=== PATIENT | male | born 1955 | race Caucasian/White ===

== ENCOUNTER 2017-01-14 16:01 | Observation (INO) | payer OTHER ==
[2017-01-14] MEDS ORDERED: ASPIRIN 81 MG CHEWABLE TAB PO ONE (16:12)
--- NOTE | 2017-01-14 16:14 | CPEKG ---
Heart Rate: 55 RR Interval: 1091 P-R Interval: 164 QRSD Interval: 116 QT Interval: 436 QTC Interval: 417 P [place]: 67 QRS [place]: -14 T Wave [place]: -3 EKG Severity - ABNORMAL ECG - EKG Impression: SINUS RHYTHM EKG Impression: INCOMPLETE RIGHT BUNDLE BRANCH BLOCK Electronically Signed By: Shabbir Moy 16-Jan-2017 09:00:18
[2017-01-14 16:27] LABS: % IMMATURE GRANULYOCYTES 0.3 % (0.0-1.1); ABSOLUTE IMMATURE GRANULOCYTES 0.03 10^3/uL (0.00-0.10); ADD DIFF? NO; ADD MORPH? NO; ADD SCAN? NO; ATYPICAL LYMPHOCYTE FLAG 0 (0-99); FRAGMENT RBC FLAG 0 (0-99); HEMATOCRIT 47.2 % (40.0-51.0); HEMOGLOBIN 16.4 g/dL (13.7-17.5); LEFT SHIFT FLG 0 (0-99); LIPEMIA HEMOLYSIS FLAG 90 (0-99); MEAN CELL HEMOGLOBIN 31.5 pg (27.9-34.1); MEAN CELL HEMOGLOBIN CONCENTR. 34.7 g/dL (32.4-36.7); MEAN CELL VOLUME 90.8 fL (81.5-99.8); MEAN PLATELET VOLUME 10.5 fL (8.7-11.7); PLATELET CLUMPS FLAG 0 (0-99); PLATELET COUNT 194 10^3/uL (150-400); RED CELL DISTRIBUTION WIDTH 12.4 % (11.5-15.2)
[2017-01-14 16:36] LABS: INR 1.06 (0.83-1.16); PROTIME(PATIENT) 13.5 SEC (12.0-15.0)
[2017-01-14 16:37] LABS: APTT 28.4 SEC (23.0-38.0)
[2017-01-14 16:44] LABS: ANION GAP 12 mEq/L (8-16); CALCIUM 9.6 mg/dL (8.5-10.4); CARBON DIOXIDE 27 mEq/l (22-31); CHLORIDE 101 mEq/L (97-110); CREATININE 0.9 mg/dL (0.7-1.3); GLOMERULAR FILTRATION RATE > 60; GLUCOSE 88 mg/dL (70-100); POTASSIUM 4.2 mEq/L (3.5-5.2); SODIUM 140 mEq/L (134-144)
[2017-01-14 16:53] LABS: TROPONIN I < 0.012 ng/mL (0.000-0.034)
--- NOTE | 2017-01-14 17:00 | EDPHY ---
H & P Time Seen by Provider: 01/14/17 16:12 HPI/ROS: HPI Chest pain, right arm discomfort. 61-year-old male from the office of his primary care physician, Dr. Macdonald. Patient reports that he had a 8 minutes episode of right sided substernal and pectoral chest pain described as a deep ache and squeezing sensation this morning with associated numbness and tingling in his right upper extremity and shoulder. He had a similar episode to this about 2 weeks ago which was not a severe and lasted only 45 seconds to a minute. ROS: Constitutional: No fever, no chills. No weakness. Eyes: No discharge. No changes in vision. ENT: No sore throat. No nasal congestion or rhinorrhea. Respiratory: No cough. No shortness of breath. Cardiac: As above, no palpitations. Gastrointestinal: No abdominal pain, no vomiting, no diarrhea. Genitourinary: No hematuria. No dysuria or increased frequency with urination. Musculoskeletal: No back pain. No neck pain. No myalgias or arthralgias. Skin: No rashes. Neurological: No headache. No focal weakness or altered sensation. Past medical history: Hypertension, hyperlipidemia, former smoker, quit 6 months ago, 2 diabetic. Social history: As above. . is on her way. Physical Exam: General Appearance: Alert, no distress. This patient is responding to questions appropriately and in full sentences. This patient appears well- hydrated and well-nourished. Eyes: Pupils equal and round no pallor or injection. No lid edema, erythema or injection. Respiratory: There are no retractions, lungs are clear to auscultation with good air movement bilaterally. Cardiovascular: Regular rate and rhythm. No murmur. Gastrointestinal: Abdomen is soft and nontender, no masses, bowel sounds normal. No focal tenderness at McBurney's point. No Thayer sign. Neurological: Motor sensory function is grossly intact. Cranial nerves are normal. Gait is normal. Skin: Warm and dry, no rashes. Musculoskeletal: Neck is supple and nontender. Extremities are symmetrical. All joints range without pain or impingement. Psychiatric: No agitation. No depression. Database: EKG: EKG time is 4:13 p.m.; EKG shows a narrow complex normal sinus rhythm with a ventricular rate of 55. Incomplete right bundle branch block noted. The MT, QRS , QT intervals are within normal limits. Inverted T-wave in lead 3. There are no ST-T wave changes indicative of ischemic or injury pattern. No evidence of right heart strain. This EKG was compared to a prior study from December 10 of this year does not show any significant changes. Interpreted by me. Imaging: Chest x-ray AP portable; the cardiac mediastinal silhouette is unremarkable. No evidence of infiltrate or pneumothorax. No acute cardiopulmonary disease process noted. Interpreted by me. Procedures: Emergency department course: IV placed. He was placed on a monitoring manager. Vital signs were reviewed. He was given 324 mg of chewed aspirin. He does not have any chest discomfort on presentation to our emergency department or during my evaluation. 5:00 p.m., patient re-evaluated. Resting comfortably. No chest pain. Discussed admission. He endorses. 5:15 p.m., patient re-evaluated. No chest pain at this time. Discussed results of diagnostic testing. He has been stable in the emergency department and without chest pain. He wishes to go by private vehicle to [facility]. His will take him there. He understands the risks by going by private vehicle. The patient competently engages in shared decision making. They demonstrate capacitance to make decisions. 5:20 p.m., spoke with hospitalist, Dr. Nair, patient accepted for admission to telemetry for further evaluation and management. Patient's remaining emergency department course under my care uneventful. Patient transferred by private vehicle in stable condition to [facility]. Differential Diagnosis: The differential diagnosis on this patient includes but is not limited to acute coronary syndrome, angina. This represents a partial list of diagnoses considered. These considerations are based on history, physical exam, past history, reassessment and diagnostic testing. Smoking Status: Former smoker Constitutional: Initial Vital Signs Temperature (C) 36.8 C 01/14/17 16:15 Heart Rate 61 01/14/17 16:15 Respiratory Rate 18 01/14/17 16:15 Blood Pressure 151/103 H 01/14/17 16:15 O2 Sat (%) 95 01/14/17 16:15 O2 Delivery Mode Room Air Allergies/Adverse Reactions: Penicillins Allergy (Verified 01/14/17 16:12) Home Medications: Medication Instructions Recorded Lisinopril 02/02/13 Adderall 10 MG (*) 01/14/17 Benzocaine 01/14/17 Medical Decision Making - Diagnostics Imaging Results: Imaging Impressions Chest X-Ray 01/14/17 16:13 Impression: No acute or subacute source for right-sided chest pain identified. - Data Points Laboratory Results: Laboratory Results 01/14/17 16:22 01/14/17 16:22 01/14/17 01/14/17 01/14/17 16:22 16:22 16:22 WBC 8.81 10^3/uL 10^3/uL (3.80-9.50) RBC 5.20 10^6/uL 10^6/uL (4.40-6.38) Hgb 16.4 g/dL g/dL (13.7-17.5) Hct 47.2 % % (40.0-51.0) MCV 90.8 fL fL (81.5-99.8) MCH 31.5 pg pg (27.9-34.1) MCHC 34.7 g/dL g/dL (32.4-36.7) RDW 12.4 % % (11.5-15.2) Plt Count 194 10^3/uL 10^3/uL (150-400) MPV 10.5 fL fL (8.7-11.7) Neut % (Auto) 57.8 % % (39.3-74.2) Lymph % (Auto) 31.7 % % (15.0-45.0) [place] % (Auto) 6.8 % % (4.5-13.0) Eos % (Auto) 2.8 % % (0.6-7.6) Baso % (Auto) 0.6 % % (0.3-1.7) Nucleat RBC Rel Count 0.0 % % (0.0-0.2) Absolute Neuts (auto) 5.09 10^3/uL 10^3/uL (1.70-6.50) Absolute Lymphs (auto) 2.79 10^3/uL 10^3/uL (1.00-3.00) Absolute Monos (auto) 0.60 10^3/uL 10^3/uL (0.30-0.80) Absolute Eos (auto) 0.25 10^3/uL 10^3/uL (0.03-0.40) Absolute Basos (auto) 0.05 10^3/uL 10^3/uL (0.02-0.10) Absolute Nucleated RBC 0.00 10^3/uL 10^3/uL (0-0.01) Immature Gran % 0.3 % % (0.0-1.1) Immature Gran # 0.03 10^3/uL 10^3/uL (0.00-0.10) PT 13.5 SEC SEC (12.0-15.0) INR 1.06 (0.83-1.16) APTT 28.4 SEC SEC (23.0-38.0) Sodium 140 mEq/L mEq/L (134-144) Potassium 4.2 mEq/L mEq/L (3.5-5.2) Chloride 101 mEq/L mEq/L (97-110) Carbon Dioxide 27 mEq/l mEq/l (22-31) Anion Gap 12 mEq/L mEq/L (8-16) BUN 15 mg/dL mg/dL (7-23) Creatinine 0.9 mg/dL mg/dL (0.7-1.3) Estimated GFR > 60 Glucose 88 mg/dL mg/dL (70-100) Calcium 9.6 mg/dL mg/dL (8.5-10.4) Creatine Kinase 53 IU/L IU/L (0-224) CK-MB (CK-2) Fraction 0.50 ng/mL ng/mL (0.00-4.55) Troponin I < 0.012 ng/mL ng/mL (0.000-0.034) Medications Given: Discontinued Medications Aspirin (Aspirin) 324 mg PO EDNOW ONE Stop: 01/14/17 16:13 Last Admin: 01/14/17 16:57 Dose: 324 mg Departure - Departure Disposition: [facility] Acute Clinical Impression: Chest pain
[2017-01-14] MEDS ORDERED: ONDANSETRON 4 MG/2 ML VIAL IVP PRN (20:10)
[2017-01-14] MEDS ORDERED: ACETAMINOPHEN 325 MG TAB PO PRN (20:10)
--- NOTE | 2017-01-14 20:44 | GHP ---
[f rep st] HISTORY AND PHYSICAL DATE OF ADMISSION: 01/14/2017 CHIEF COMPLAINT: Chest pain and right arm weakness. HISTORY OF PRESENT ILLNESS: The patient is a 61-year-old male who had an episode this morning when he woke up where he felt an ache and squeezing pressure on the right side of his chest. At the same time, his right arm was numb and weak. He did not have control of his right arm. The whole episod e lasted about 5 minutes and then it resolved. He had a similar episode 1 week ago, but that was sh orter and only lasted 1 minute. The chest pain was nonpleuritic and constant. He has also had othe r recent concerning neurological symptoms. He thought he might be having some vision changes, and mehran mejia made an ophthalmology appointment. He is having some transient dizzy issues. He feels his mind i s hazy, and he is having focus issues. His primary care doctor scheduled him tomorrow for a carotid ultrasound. PAST MEDICAL HISTORY: 1. Hypertension. 2. Hyperlipidemia. 3. Diabetes type 2. 4. Diverticulitis. MEDICATIONS: Please see computer record for full detailed list. ALLERGIES: PENICILLIN. SOCIAL HISTORY: Quit smoking 6 months ago. Quit drinking 6 months ago. Prior to that, he was drin pranav 2-3 alcoholic beverages per day. He lives with his . He works as a flexographic printing press operator. REVIEW OF SYSTEMS: Complete review of systems obtained. Review of systems are negative on constitu tional, HEENT, GI, pulmonary, cardiovascular, , hematology, skin, musculoskeletal, endocrine, psyc h except for positives and negatives as in HPI. FAMILY HISTORY: Reviewed, noncontributory to current complaint. PHYSICAL EXAMINATION: GENERAL: Well-developed, well-nourished male, in no distress. VITAL SIGNS: Temperature 36.6, pulse 74, blood pressure 137/86, saturating 93% on room air. EYES: Normal conju nctivae. Pupils react to light. ENT: Normal ears and nose. Hearing intact. Normal teeth. Oroph arynx moist. NECK: Trachea midline. No thyromegaly. CHEST: Normal respiratory effort. LUNGS: Clear to auscultation bilaterally. CARDIOVASCULAR: Regular rhythm. No murmur. No lower extremity edema. ABDOMEN: Soft, nontender. No hepatosplenomegaly. SKIN: Warm, dry, intact. No rash. MU SCULOSKELETAL: No cyanosis or clubbing. Strength 5/5 upper and lower extremities. NEUROLOGIC: Cr anial nerves intact. Normal sensation to light touch. PSYCH: He is alert and oriented x3. Normal affect. Normal judgment. Normal memory. LABORATORY DATA: White count 8.8, hematocrit 47.2, platelets 194. Sodium 140, potassium 4.2, chlor ezra 101, bicarb 27, BUN 15, creatinine 0.9, glucose 88. Troponins negative. INR is 1.06. EKG viewed by me. My personal interpretation is normal sinus rhythm, incomplete right bundle branch block. Chest x-ray is negative. ASSESSMENT/PLAN: 1. Right-sided chest pain with transient right arm weakness and numbness. This is quite atypical f or cardiac. His right arm symptoms are quite predominant, which makes me wonder if there is a neuro logic problem here. We will rule out coronary ischemia with an exercise treadmill test in the [facility]. I also think we need to evaluate for possible transient ischemic attack. We will check an MRI of the brain, carotid ultrasound and echocardiogram. 2. Hypertension. We will clarify home medications and continue. 3. Hyperlipidemia. We will check a lipid panel in the morning. CODE STATUS: Full. ADMISSION STATUS: We will admit to observation depending on test results. May be able to go home t omorrow. DVT PROPHYLAXIS: He is moderate risk. We will place him on subcu Lovenox. /[id number]/MODL
[2017-01-14] MEDS ORDERED: LORazepam 2 MG/ML INJ IVP ONE (21:13)
[2017-01-14] MEDS ORDERED: GADOBUTROL 10 ML VIAL IVP ONE (21:38)
[2017-01-15 07:01] LABS: CHOLESTEROL 168 mg/dL (140-220); HIGH DENSITY LIPOPROTEIN 23 mg/dL (40-65); LDL/HDL RATIO 4.43 RATIO (1.00-3.64); LOW DENSITY LIPOPROTEIN 102 mg/dL (80-100); NON-HIGH DENSITY LIPOPROTEIN 145 mg/dL (90-129); TRIGLYCERIDE 218 mg/dL (40-150); VERY LOW DENSITY LIPOPROTEINS 43 mg/dL (8-25)
[2017-01-15 07:14] LABS: TROPONIN I < 0.012 ng/mL (0.000-0.034)
[2017-01-15] MEDS ORDERED: ASPIRIN EC 81 MG TAB PO SCH (09:00)
[2017-01-15] MEDS ORDERED: ENOXAPARIN 40 MG/0.4 ML SYR SC SCH (09:00)
[2017-01-15] MEDS ORDERED: LISINOPRIL/HCTZ 10/12.5 MG 1 EA TAB PO SCH (09:15)
--- NOTE | 2017-01-15 09:24 | CPEKG ---
Heart Rate: 67 RR Interval: 896 P-R Interval: 168 QRSD Interval: 136 QT Interval: 452 QTC Interval: 478 P [place]: 73 QRS [place]: -25 T Wave [place]: -9 EKG Severity - ABNORMAL ECG - EKG Impression: SINUS RHYTHM EKG Impression: SINUS PAUSE/ARREST WITH ATRIAL ESCAPE EKG Impression: RIGHT BUNDLE BRANCH BLOCK Electronically Signed By: [place] Parekh 15-Jan-2017 11:48:46
[2017-01-15] MEDS ORDERED: LISINOPRIL/HCTZ 20/12.5MG 1 EA TAB PO SCH (10:00)
--- NOTE | 2017-01-15 10:11 | ECHO ---
[id number] + + [address] : : [place] [address] : : [phone] + + Adult Echocardiographic Report + ---+ :Name: KUNAL MOSHER KStudy Date: 01/15/2017 09:05 AM : : Hospital Admission Number: [id number] Location: 201: :: 1955 Gender: Male Height: 69 in : :Age: 61 yrs Race: WH Weight: 253 lb : :Reason For Study: TIA : : BSA: 2.3 meters2 : + ---+ MMode/2D Measurements \T\ Calculations IVSd: 0.90 cm LVIDd: 4.7 cm FS: 37.1 % Ao root diam: 3.4 cm LVPWd: 0.98 cm LVIDs: 3.0 cm EDV(Teich): 103.4 ml LA dimension: 4.1 cm ESV(Teich): 34.2 ml EF(Teich): 67.0 % Normal Measurement Values: + + :LVIDd (3.5-5.7cm) IVSd (0.6-1.1cm) LVPWd (0.6-1.1cm) Aortic Root (2.0-3.7cm)Left Atrium (1.5-4.0cm): :LV Vol(d) (76-115ml) LV Vol(s) (29-48ml) Ejec Fraction (50-65%)PV [place] (0.6- 1.2m/s) TV [place] (0.4-1.0m/s) : :MV E [place] (0.8-1.0m/s)MV A [place] (0.3-1.0m/s)LVOT [place] (0.7-1.2m/s) Asc Ao [place] ( 0.9-1.8m/s) : + + Doppler Measurements \T\ Calculations MV E max jordan: 51.8 cm/sec Ao V2 max: 136.0 cm/sec TR max jordan: 239.0 cm/sec MV A max jordan: 49.9 cm/sec Ao max P.4 mmHg TR max P.8 mmHg MV E/A: 1.0 RAP systole: 5.0 mmHg RVSP(TR): 27.8 mmHg Left Ventricle The left ventricle is normal in size. There is mild concentric left ventricular hypertrophy. Left ventricular systolic function is normal. Ejection Fraction = 60-65%. The left ventricular ejection fraction is calculated at 67.0 %. normal segmental motion. Right Ventricle The right ventricle is normal in size and function. Atria Borderline left atrial enlargement. Right atrial size is normal. Mitral Valve The mitral valve is normal in structure and function. There is trace mitral regurgitation. Tricuspid Valve Normal tricuspid valve. There is trace to mild tricuspid regurgitation. Right ventricular systolic pressure is normal. Aortic Valve The aortic valve opens well. The aortic valve is trileaflet. There is no aortic stenosis. Trace aortic regurgitation. Pulmonic Valve The pulmonic valve is not well visualized. Trace pulmonic valvular regurgitation. Great Vessels The aortic root is normal size. Pericardium/Pleural There is no pericardial effusion. There is a fat pad seen. Conclusion A complete two-dimensional transthoracic echocardiogram was performed (2D, M-mode, Doppler and color flow Doppler). (1) Left ventricular systolic ejection fraction was normal (60-65%) - grossly normal wall motion (2) Mild concentric left ventricular hypertrophy (3) Diastolic function was grossly normal (4) Normal right ventricular size and function (5) Borderline left atrial enlargement with normal right atrial dimensions (6) Physiologic mitral regurgitation (7) Trileaflet aortic valve with physiologic insufficiency, but no sclerosis or stenosis (8) Trace/mild tricuspid regurgitation - RVSP was normal (9) Poor visualization of the pulmonic valve (10) No comparison echocardiograms Final Reading Physician: Matthias Adan signed on 01/15/2017 10:09 AM Ordering Physician: Trish Nair Performed By: Trisha Mcqueen RD
--- NOTE | 2017-01-15 13:32 | CPR ---
[f rep st] NONINVASIVE CARDIAC PROCEDURE REPORT DATE OF PROCEDURE: 01/15/2017 PROCEDURE PERFORMED: Exercise treadmill test. REASON FOR TEST: 1. Right chest discomfort radiating into right arm. 2. New right bundle branch block. RESULTS: Resting EKG shows sinus rhythm with right bundle branch block. He is asymptomatic at this time. Resting blood pressure 120/80. Resting heart rate 76. TREADMILL PORTION: He was exercised according to the Dominic protocol for a total of 6 minutes, maxim al MET level 5.8, maximal heart rate 100% at 158, max blood pressure 202/60. He remained asymptomat ic throughout testing. At 6 minutes, he had reached maximal effort. RECOVERY: He spontaneously recovered. There were PVCs with rare couplets in recovery. He had no o ther EKG changes. His recovery blood pressure 150/60, recovery heart rate 106. At this time, he is stable to return to his room. /[id number]/MODL
[2017-01-15 15:15] VITALS: BP 116/66; PULSE 78; RESP 20; TEMP 97.9; O2SAT 90
[2017-01-15] MEDS ORDERED: IBUPROFEN 200 MG TAB PO SCH (16:00)
--- NOTE | 2017-01-15 16:21 | HOSPPROG ---
Hospitalist Progress Note Assessment/Plan: 61 yo M w cp, arm tingling neg cardiac and neuro eval; home see dc summary Subjective: neg stress Objective: Vital Signs Temp Pulse Resp BP Pulse Ox 36.6 C 78 20 116/66 90 L 01/15/17 15:15 01/15/17 15:15 01/15/17 15:15 01/15/17 15:15 01/15/17 15:15 01/14/17 01/15/17 01/16/17 05:59 05:59 05:59 Intake Total 400 240 Balance 400 240 PT 13.5 SEC (12.0-15.0) 01/14/17 16:22 INR 1.06 (0.83-1.16) 01/14/17 16:22 - Physical Exam Constitutional: no apparent distress, appears nourished Eyes: PERRL, anicteric sclera Ears, Nose, Mouth, Throat: moist mucous membranes, hearing normal Cardiovascular: regular rate and rhythym, no murmur, rub, or gallop Respiratory: no respiratory distress, no rales or rhonchi Gastrointestinal: normoactive bowel sounds, soft, non-tender abdomen Genitourinary: no bladder fullness, No mcmillan in urethra Skin: warm, normal color Musculoskeletal: full muscle strength, no muscle tenderness Neurologic: AAOx3 ICD10 Worksheet Patient Problems: Problems Problem Status Onset Chest pain Acute
--- NOTE | 2017-01-15 17:48 | ASDISCHSUM ---
Discharge Information Plan Status:Home with No Needs Medically Cleared to Leave: Discharge Date:01/15/2017 04:55 PM CM D/C Disposition:Home, Routine, Self-Care ADT D/C Disposition:Home, Routine, Self-Care Projected Discharge Date:01/15/2017 04:55 PM Transportation at D/C:Family Discharge Delay Reason: Follow-Up Date:01/15/2017 04:55 PM Discharge Slot: Final Diagnosis: Placement Information Patient Contact Information Contact Name:SAGAR Relationship: Address:[address] City:[place] Alternate Phone: [facility]/Zip Code:[place] [address] Email: Financial Information Financial Class:[facility] Primary Plan Desc:[employer] HMO OPEN ACC LOCAL Primary Plan Number:[id number] Secondary Plan Desc: Secondary Plan Number: Assessment Information Intervention Information
[2017-01-15] MEDS ORDERED: CYCLOBENZAPRINE 10 MG TAB PO SCH (21:00)
--- NOTE | 2017-01-15 21:12 | GDS ---
[f rep st] DISCHARGE SUMMARY DISCHARGE DIAGNOSES: 1. Right bundle branch block. 2. Chest pain with negative evaluation. 3. Right arm tingling with negative evaluation. HOSPITAL COURSE: Please see admission history and physical by Dr. Trish Nair. The patient pres ented with the aforementioned symptoms. He had an EKG showing right bundle branch block pattern but no ischemic changes. He had negative troponins. He underwent stress test showing poor exercise to lerance but otherwise no ischemic changes. He had an echocardiogram which was normal. He had a bra in MRI showing microvascular disease. Carotid Doppler showing no flow-limiting stenosis. He is dis charged home. He is recommended to take an aspirin on a daily basis. /[id number]/MODL
[2017-01-16] MEDS ORDERED: ADDERALL 10 MG TAB PO SCH (09:00)
== END 2017-01-15 16:55 | disposition home or self-care (01) ==
LOC: CED 16:01 → CEDHOLD 17:04 → F2W 19:11
PROVIDERS: ADMIT Internal Medicine; ATTEND Internal Medicine
DX: I45.10 Unspecified right bundle-branch block (principal); R07.9 Chest pain, unspecified; R20.2 Paresthesia of skin; I10 Essential (primary) hypertension; E78.5 Hyperlipidemia, unspecified; E11.9 Type 2 diabetes mellitus without complications; Z87.891 Personal history of nicotine dependence
CPT/HCPCS: 71010-PO; 80048-PO; 82550-PO; 82553-PO; 84484-PO; 85025-PO; 85610-PO; 85730-PO; A9585; J1650; J2060

== ENCOUNTER → 2017-07-30 | Outpatient (CLI) | payer OTHER | LOC: CIMAGING 10:12 | PROVIDERS: ATTEND Internal Medicine | DX: M19.012 Primary osteoarthritis, left shoulder (principal) | CPT/HCPCS: 73030-PO ==

== ENCOUNTER 2017-08-07 08:36 | Outpatient (CLI) | payer OTHER ==
[2017-08-07] MEDS ORDERED: NALOXONE HCL 0.4 MG/ML INJ IVP PRN (08:54)
[2017-08-07] MEDS ORDERED: MIDAZOLAM 2 MG/2 ML VIAL IVP PRN (08:54)
[2017-08-07] MEDS ORDERED: MEPERIDINE 25 MG/ML SYR IVP PRN (08:54)
[2017-08-07] MEDS ORDERED: FLUMAZENIL 0.5 MG/5 ML MDV IVP PRN (08:54)
[2017-08-07] MEDS ORDERED: fentaNYL 100 MCG/2 ML INJ IVP PRN (08:54)
[2017-08-07] MEDS ORDERED: NS 1,000 ML IV SCH (09:00)
--- NOTE | 2017-08-07 09:58 | PDPROPOC ---
Sedation Plan of Care Sedation Plan of Care: vital signs stable, mental status noted, patient educated of risks, benefits, alternatives, patient can tolerate sedation ASA Classification: ASA 1 Planned drugs: fentanyl, midazolam Mallampati Score: Class 2 Mallampati Reference Image: Patient passed 3-3-2 rule?: Yes
--- NOTE | 2017-08-07 09:59 | PDGENHP ---
History & Physical Chief Complaint: shoulder pain History of Present Illness: post op shoulder pain Cardiorespiratory Assessment: RRR, lungs clear
[2017-08-07] MEDS ORDERED: ACETAMINOPHEN 325 MG TAB PO PRN (11:25)
[2017-08-07] MEDS ORDERED: ONDANSETRON 4 MG/2 ML VIAL IVP PRN (11:25)
[2017-08-07 11:35] VITALS: PULSE 78; RESP 18
[2017-08-07 11:56] VITALS: TEMP 97.5
[2017-08-07 12:17] VITALS: BP 123/74; O2SAT 96
== END 2017-08-07 12:30 | disposition home or self-care (01) ==
LOC: FIMAGING 08:36
PROVIDERS: ATTEND Orthopaedic Surgery Hand Surgery
DX: M75.112 Incomplete rotator cuff tear or rupture of left shoulder, not specified as traumatic (principal); M75.22 Bicipital tendinitis, left shoulder; M75.82 Other shoulder lesions, left shoulder
CPT/HCPCS: J2250; J2310; J3010